=== PATIENT | male | born 1955 | race Caucasian/White ===

== ENCOUNTER 2017-05-31 06:54 | Inpatient (IN) | payer OTHER ==
[2017-05-31] VITALS (16 sets, daily range): BP systolic 114–158; BP diastolic 67–97; PULSE 62–84; RESP 16–18; TEMP 98.6–98.9; O2SAT 96–98
[~2017-05-31] VITALS: Ht 182.9 cm; Wt 106.5 kg
[~2017-05-31 06:54] MED LIST: DOXY100T PO; SULF-154 PO; Z.0.NO CURRENT MEDS
[2017-05-31] MEDS ORDERED: METF1000 PO (07:23)
[2017-05-31] MEDS ORDERED: INSU100V3 SQ (07:23)
[2017-05-31] MEDS ORDERED: FAMO1TAB37 PO (07:23)
[2017-05-31] MEDS ORDERED: MORPHINE SULFATE 4 MG/ML INJ IV PUSH ONE (07:30)
[2017-05-31] MEDS ORDERED: SODIUM CHLORIDE 0.9% FLUSH 10 ML FLUSH IVF PRN (07:30)
[2017-05-31] MEDS ORDERED: NITROGLYCERIN 2% OINT 1 GM PACKET TOP ONE (07:30)
[2017-05-31] MEDS ORDERED: ASPIRIN 81 MG CHEW TAB PO ONE (07:30)
[2017-05-31 07:40] LABS: AUTOMATED NEUTROPHIL # 8.4 TH/MM3 (1.8-7.7); BASOPHIL % 0.3 % (0.0-2.0); EOSINOPHIL # 0.3 TH/MM3 (0-0.4); HEMO FLAGS DIFF FINAL; LYMPH % 19.9 % (9.0-44.0); LYMPHOCYTE # 2.3 TH/MM3 (1.0-4.8); MEAN CELL VOLUME 83.6 FL (80.0-100.0); MEAN CORPUSCULAR HEMOGLOBIN 28.1 PG (27.0-34.0); MEAN CORPUSCULAR HGB CONC 33.6 % (32.0-36.0); MONO % 4.4 % (0.0-8.0); NEUT % 72.4 % (16.0-70.0); PLATELET COUNT 219 TH/MM3 (150-450); RED BLOOD COUNT 5.74 MIL/MM3 (4.50-5.90); WHITE BLOOD COUNT 11.6 TH/MM3 (4.0-11.0)
--- NOTE | 2017-05-31 07:40 | PD ---
HPI Chief Complaint: Chest Pain Time Seen by Provider: 07:19 Travel History International Travel<30 days: No Contact w/Intl Traveler<30days: No Traveled to known affect area: No History of Present Illness HPI c/o intermittent chest discomfort "burning" in sensation, over last 2 weeks, intermittent, worse with exertion, episodes last 30min max, substernal, 9/10 at onset currently 6/10 pmhx: borderline htn, dm, smoked 30yrs ago, pcp dr eulalia [place] no [facility] Past Medical History Diabetes: Yes Patient Takes Glucophage: Yes Diminished Hearing: No GERD: Yes Hiatal Hernia: Yes ?: Not Social History Alcohol Use: No Tobacco Use: No Substance Use: No Allergies-Medications (Allergen,Severity, Reaction): Coded Allergies: No Known Allergies (Verified , 05/30/09) Reported Meds & Prescriptions Reported Meds & Active Scripts Active Reported Pepcid (Famotidine) 20 Mg Tab 10 Mg PO BID Humulin N Inj (Insulin Human NPH) 1,000 Unit/10 Ml Vial 10 Units SQ Metformin (Metformin HCl) 1,000 Mg Tab 1,000 Mg PO BIDPC With meals Physical Exam Narrative GENERAL: SKIN: Warm and dry. HEAD: Atraumatic. Normocephalic. EYES: Pupils equal and round. No scleral icterus. No injection or drainage. ENT: No nasal bleeding or discharge. Mucous membranes pink and moist. NECK: Trachea midline. No JVD. CARDIOVASCULAR: Regular rate and rhythm. RESPIRATORY: No accessory muscle use. Clear to auscultation. Breath sounds equal bilaterally. GASTROINTESTINAL: Abdomen soft, non-tender, nondistended. Hepatic and splenic margins not palpable. MUSCULOSKELETAL: Extremities without clubbing, cyanosis, or edema. No obvious deformities. NEUROLOGICAL: Awake and alert. No obvious cranial nerve deficits. Motor grossly within normal limits. Five out of 5 muscle strength in the arms and legs. Normal speech. PSYCHIATRIC: Appropriate mood and affect; insight and judgment normal. Data Data Last Documented VS Vital Signs Date Time Temp Pulse Resp B/P (MAP) Pulse Ox O2 Delivery O2 Flow Rate FiO2 05/31/17 08:13 67 18 147/72 (97) 98 Room Air 05/31/17 06:56 98.9 Orders Orders Electrocardiogram (05/31/17 07:19) Ckmb (Isoenzyme) Profile (05/31/17 07:19) Complete Blood Count With Diff (05/31/17 07:19) Comprehensive Metabolic Panel (05/31/17 07:19) Prothrombin Time / Inr (Pt) (05/31/17 07:19) Act Partial Throm Time (Ptt) (05/31/17 07:19) Troponin I (05/31/17 07:19) Chest, Single Ap (05/31/17 07:19) Ecg Monitoring (05/31/17 07:19) Bilateral Bp Monitoring (05/31/17 07:19) Iv Access Insert/Monitor (05/31/17 07:19) Oximetry (05/31/17 07:19) Oxygen Administration (05/31/17 07:19) Aspirin Chew (Aspirin Chew) (05/31/17 07:30) Morphine Inj (Morphine Inj) (05/31/17 07:30) Nitroglycerin 2% Oint (Nitroglycerin 2% (05/31/17 07:30) Sodium Chloride 0.9% Flush (Ns Flush) (05/31/17 07:30) Al-Mag Hy-Si 40-40-4 Mg/Ml Liq (Mag-Al P (05/31/17 07:45) Lidocaine 2% Viscous (Xylocaine 2% Visco (05/31/17 07:45) CKMB (05/31/17 07:30) CKMB% (05/31/17 07:30) Enoxaparin Inj (Lovenox Inj) (05/31/17 08:45) Labs Laboratory Tests Test 05/31/17 07:30 White Blood Count 11.6 TH/MM3 Red Blood Count 5.74 MIL/MM3 Hemoglobin 16.1 GM/DL Hematocrit 48.0 % Mean Corpuscular Volume 83.6 FL Mean Corpuscular Hemoglobin 28.1 PG Mean Corpuscular Hemoglobin Concent 33.6 % Red Cell Distribution Width 13.0 % Platelet Count 219 TH/MM3 Mean Platelet Volume 8.1 FL Neutrophils (%) (Auto) 72.4 % Lymphocytes (%) (Auto) 19.9 % Monocytes (%) (Auto) 4.4 % Eosinophils (%) (Auto) 3.0 % Basophils (%) (Auto) 0.3 % Neutrophils # (Auto) 8.4 TH/MM3 Lymphocytes # (Auto) 2.3 TH/MM3 Monocytes # (Auto) 0.5 TH/MM3 Eosinophils # (Auto) 0.3 TH/MM3 Basophils # (Auto) 0.0 TH/MM3 CBC Comment DIFF FINAL Differential Comment Prothrombin Time 10.5 SEC Prothromb Time International Ratio 1.0 RATIO Activated Partial Thromboplast Time 25.3 SEC Blood Urea Nitrogen 13 MG/DL Creatinine 1.05 MG/DL Random Glucose 235 MG/DL Total Protein 6.9 GM/DL Albumin 3.4 GM/DL Calcium Level 8.6 MG/DL Alkaline Phosphatase 82 U/L Aspartate Amino Transf (AST/SGOT) 29 U/L Alanine Aminotransferase (ALT/SGPT) 24 U/L Total Bilirubin 0.4 MG/DL Sodium Level 138 MEQ/L Potassium Level 3.9 MEQ/L Chloride Level 102 MEQ/L Carbon Dioxide Level 26.5 MEQ/L Anion Gap 10 MEQ/L Estimat Glomerular Filtration Rate 71 ML/MIN Total Creatine Kinase 134 U/L Creatine Kinase MB 9.9 NG/ML Troponin I 4.55 NG/ML MDM Medical Decision Making Medical Screen Exam Complete: Yes Emergency Medical Condition: Yes Medical Record Reviewed: Yes Interpretation(s) nsr, 74, lad, inverted t waves inferiorly Differential Diagnosis mi v nonstemi v pna v hiatal hernia/gerd Narrative Course PATIENT SEEN AND PAIN CONTROL WITH ASA/NTG/MORPHINE , UPON FINDING ELEV TROP, GIVEN [facility] SC AND OWNER CONSULTING ENGINEER CONSULTED...DR NEGRETE STATED DR DORANTES TO TAKE TO CATH Critical Care Narrative CRITICAL CARE NOTE: With evaluation of the patient, labs, EKG, receipt of radiologic studies, administration of medications, reevaluation the patient and discussion of the patient with the admitting physicians, the total critical care time was [45] minutes. Time to perform other separately billable procedures was not included in the critical care time. Physician Communication Physician Communication D/W DR NEGRETE RECC [facility] AND ADMIT TO [facility], AND WILL CALL BACK WITH PLAN OF ACTION....AT 0857 CALL BACK STATED KEEP NPO AND THAT DR DORANTES WILL TAKE TO CROP ADJUSTER AND IS TO BE CONSULTED Diagnosis Primary Impression: Non-STEMI (non-ST elevated myocardial infarction) Admitting Information Admitting Physician Requests: Admit Gavino Matos MD May 31, 2017 07:40
[2017-05-31] MEDS ORDERED: LIDOCAINE VISCOUS 2% SOLN 15 ML UDC PO ONE (07:45)
[2017-05-31] MEDS ORDERED: ALUMINUM/MAGNESIUM/SIMETH 30 ML CUP PO ONE (07:45)
[2017-05-31 07:47] LABS: APTT (PATIENT) 25.3 SEC (24.3-30.1); PROTHROMBIN TIME - PATIENT 10.5 SEC (9.8-11.6)
[2017-05-31 07:55] LABS: ALT (GPT) 24 U/L (12-78); ANION GAP 10 MEQ/L (5-15); AST (GOT) 29 U/L (15-37); BICARBONATE 26.5 MEQ/L (21.0-32.0); BLOOD UREA NITROGEN 13 MG/DL (7-18); CHLORIDE 102 MEQ/L (98-107); GLOMERULAR FILTRATION RATE 71 ML/MIN (>89); POTASSIUM 3.9 MEQ/L (3.5-5.1); SODIUM (NA) 138 MEQ/L (136-145)
[2017-05-31 07:58] LABS: ALKALINE PHOSPHATASE 82 U/L (45-117); CREATINE KINASE 134 U/L (39-308); TOTAL BILIRUBIN ADULT 0.4 MG/DL (0.2-1.0)
[2017-05-31 08:15] LABS: CKMB 9.9 NG/ML (0.5-3.6)
[2017-05-31] MEDS ORDERED: ENOXAPARIN SODIUM 80 MG/0.8 ML SYRINGE SQ ONE (08:45)
--- NOTE | 2017-05-31 08:54 | EKG ---
Date Performed: 05/31/2017 Time Performed: 07:09:10 PTAGE: 62 years EKG: Sinus rhythm LEFT ANTERIOR FASCICULAR BLOCK MODERATE VOLTAGE CRITERIA FOR LVH, CONSIDER NORMAL VARIANT POSSIBLE A NTERIOR MYOCARDIAL INFARCTION MODERATE T-WAVE ABNORMALITY, CONSIDER INFERIOR ISCHEMIA ABNORMAL ECG NO PREVIOUS TRACING DOCTOR: Charlie Bowen Interpretating Date/Time 05/31/2017 08:53:06
[2017-05-31] MEDS ORDERED: SODIUM CHLOR 0.9% 1000 ML INJ 1,000 ML IV SCH ×2 (09:05→09:10)
[2017-05-31] MEDS ORDERED: ASPIRIN 325 MG TAB PO SCH (09:15)
[2017-05-31] MEDS ORDERED: ONDANSETRON HCL 4 MG/2 ML VIAL IVP PRN (09:15)
[2017-05-31] MEDS ORDERED: diphenhydrAMINE HCL 50 MG/ML VIAL IV SCH (09:15)
[2017-05-31] MEDS ORDERED: ACETAMINOPHEN 325 MG TAB PO PRN ×2 (09:15→14:15)
[2017-05-31] MEDS ORDERED: SODIUM CHLORIDE 0.9% FLUSH 10 ML FLUSH IV FLUSH PRN (09:15)
--- NOTE | 2017-05-31 09:21 | RADRPT ---
EXAM DATE/TIME: 05/31/2017 09:13 [place] COMPARISON: No previous studies available for comparison. INDICATIONS : Chest pain for 1 week. MEDICAL HISTORY : Former smoker. SURGICAL HISTORY : None. ENCOUNTER: Initial ACUITY: 1 week PAIN SCORE: 1/10 LOCATION: Bilateral chest FINDINGS: A single view of the chest demonstrates the lungs to be symmetrically aerated without evidence of mas s, infiltrate or effusion. The cardiomediastinal contours are unremarkable. Osseous structures are intact. CONCLUSION: Normal examination. Alberto Solano MD on May 31, 2017 at 9:19 Board Certified Radiologist. This report was verified electronically.
[2017-05-31] MEDS ORDERED: DEXTROSE 50% IN WATER 50 ML VIAL(D50) IV PRN (09:30)
[2017-05-31] MEDS ORDERED: GLUCAGON 1 MG/ML VIAL OTHER PRN (09:30)
--- NOTE | 2017-05-31 09:52 | HHI.HP ---
HPI Service [facility] Hospitalists Primary Care Physician Dr. Iris Pavon Admission Diagnosis ACUTE NONSTEMI Chief Complaint: Chest pain Travel History International Travel<30 Days: No Contact w/Intl Traveler <30 Da: No Traveled to Known Affected Are: No History of Present Illness This is a 62-year-old male patient with past medical history which includes diabetes mellitus type 2, GERD and hypertension not on hypertensive medication. Patient reports for the past one to 2 weeks he has been having chest pain 8-9 out of 10 at its maximum severity located across his lower chest described as heartburn sensation exacerbated by exertion such as working out at the gym relieved by laying down or rest episodes last approximately 30 minutes associated with radiation to the neck and jaw area. There is no associated shortness of breath, diaphoresis, nausea or vomiting. Patient reports last night/this morning around midnight he began to have a burning sensation across his mid chest area which was not relieved by rest patient rates this at 5 out of 10 at its maximum severity. At this point patient reports he is chest pain- free. Patient also denies fevers or chills at this time. Patient reports he has never had these symptoms before has no cardiac history quit smoking approximately 30 years ago after smoking one pack a day for 6-7 years. Patient also denies family medical history of heart disease. initial troponin 4.55, initial EKG reveals normal sinus rhythm with a left anterior fascicular block. There are inverted T-waves in the inferior leads in V6. Review of Systems Constitutional: DENIES: Fatigue, Fever, Chills Eyes: DENIES: Diplopia, Eye pain, Vision loss Respiratory: DENIES: Wheezing, Sputum production, Shortness of breath Cardiovascular: COMPLAINS OF: Chest pain, DENIES: Palpitations, Dyspnea on Exertion Gastrointestinal: DENIES: Abdominal pain, Black stools, Constipation, Diarrhea Musculoskeletal: DENIES: Joint pain, Muscle aches, Stiffness, Joint Swelling Neurologic: DENIES: Abnormal gait, Localized weakness, Speech Problems, Tremor , Poor Balance Psychiatric: DENIES: Anxiety, Confusion, Depression, Agitation Past Family Social History Past Medical History Diabetes mellitus type 2, GERD and hypertension not on hypertensive medication Past Surgical History Denies prior surgical intervention Reported Medications Pepcid (Famotidine) 20 Mg Tab 10 Mg PO BID Humulin N Inj (Insulin Human NPH) 1,000 Unit/10 Ml Vial 10 Units SQ - noncompliant Metformin (Metformin HCl) 1,000 Mg Tab 1,000 Mg PO BIDPC With meals Allergies: Coded Allergies: No Known Allergies (Verified , 05/30/09) Active Ordered Medications Current Medications Medications (Trade) Dose Ordered Sig/Ubaldo Route Start Time Stop Time Status Last Admin (NS Flush) 2 ml UNSCH PRN IVF 05/31/17 07:30 Sodium Chloride 1,000 ml @ 100 mls/hr Q10H IV 05/31/17 09:05 UNV (NS Flush) 2 ml UNSCH PRN IV FLUSH 05/31/17 09:15 UNV (NS Flush) 2 ml BID IV FLUSH 05/31/17 21:00 UNV (Tylenol) 650 mg Q4H PRN PO 05/31/17 09:15 UNV (Zofran Inj) 4 mg Q6H PRN IVP 05/31/17 09:15 UNV (Nitroglycerin 2% Oint) 0.5 inch Q6HR TOPICAL 05/31/17 12:00 UNV Sodium Chloride 1,000 ml @ 100 mls/hr Q10H IV 05/31/17 09:10 06/05/17 09:09 UNV (Aspirin) 325 mg BUFFET SERVER PO 05/31/17 09:15 06/04/17 09:14 UNV (fentaNYL INJ) 50 mcg BUFFET SERVER IV 05/31/17 09:15 06/04/17 09:14 UNV (Benadryl Inj) 25 mg BUFFET SERVER IV 05/31/17 09:15 06/04/17 09:14 UNV Family History Denies family medical history including cardiac disease, CVA or diabetes Father at 87 of old age Mother is 97 years old alive and healthy Social History Quit smoking approximately 30 years ago prior to that had a 6-7 year period where he smoked one pack per day Denies EtOH use Denies illicit drug use Physical Exam Vital Signs Vital Signs Date Time Temp Pulse Resp B/P (MAP) Pulse Ox O2 Delivery O2 Flow Rate FiO2 05/31/17 08:13 67 18 147/72 (97) 98 Room Air 05/31/17 08:01 73 145/67 (93) 141/70 (93) 05/31/17 07:23 18 97 Room Air 05/31/17 07:23 97 Room Air 05/31/17 07:13 74 18 96 Room Air 05/31/17 06:56 98.9 72 16 158/97 (117) 97 Room Air Physical Exam GENERAL: This is a well-nourished, well-developed patient, in no apparent distress. SKIN: No rashes, ecchymoses or lesions. Cool and dry. HEAD: Atraumatic. Normocephalic. No temporal or scalp tenderness. EYES:Extraocular motions intact. No scleral icterus. No injection or drainage. CARDIOVASCULAR: Regular rate and rhythm without murmurs, gallops, or rubs. RESPIRATORY: Clear to auscultation. Breath sounds equal bilaterally. No wheezes , rales, or rhonchi. GASTROINTESTINAL: Abdomen soft, non-tender, nondistended. No guarding. MUSCULOSKELETAL: Extremities without clubbing, cyanosis, or edema. No joint tenderness, effusion, or edema noted. No calf tenderness. Negative Homans sign bilaterally. NEUROLOGICAL: Awake and alert. No focal deficits appreciated. Motor and sensory grossly within normal limits. Five out of 5 muscle strength in all muscle groups. Normal speech. Laboratory Laboratory Tests Test 05/31/17 07:30 White Blood Count 11.6 Red Blood Count 5.74 Hemoglobin 16.1 Hematocrit 48.0 Mean Corpuscular Volume 83.6 Mean Corpuscular Hemoglobin 28.1 Mean Corpuscular Hemoglobin Concent 33.6 Red Cell Distribution Width 13.0 Platelet Count 219 Mean Platelet Volume 8.1 Neutrophils (%) (Auto) 72.4 Lymphocytes (%) (Auto) 19.9 Monocytes (%) (Auto) 4.4 Eosinophils (%) (Auto) 3.0 Basophils (%) (Auto) 0.3 Neutrophils # (Auto) 8.4 Lymphocytes # (Auto) 2.3 Monocytes # (Auto) 0.5 Eosinophils # (Auto) 0.3 Basophils # (Auto) 0.0 CBC Comment DIFF FINAL Differential Comment Prothrombin Time 10.5 Prothromb Time International Ratio 1.0 Activated Partial Thromboplast Time 25.3 Blood Urea Nitrogen 13 Creatinine 1.05 Random Glucose 235 Total Protein 6.9 Albumin 3.4 Calcium Level 8.6 Alkaline Phosphatase 82 Aspartate Amino Transf (AST/SGOT) 29 Alanine Aminotransferase (ALT/SGPT) 24 Total Bilirubin 0.4 Sodium Level 138 Potassium Level 3.9 Chloride Level 102 Carbon Dioxide Level 26.5 Anion Gap 10 Estimat Glomerular Filtration Rate 71 Total Creatine Kinase 134 Creatine Kinase MB 9.9 Troponin I 4.55 Result Diagram: 05/31/1772905/31/17729 Imaging Last Impressions Chest X-Ray 05/31/17718 Signed Impressions: Service Date/Time: Wednesday, May 31, 2017 09:13 - CONCLUSION: Normal examination. MD Tony Garcia VTE Risk Assessment Tony VTE Risk Assessment: Mod/High Risk (score >= 2) Caprini Risk Assessment Model Point Value = 1 Point Value = 2 Point Value = 3 Point Value = 5 Age 41-60 Minor surgery BMI > 25 kg/m2 Swollen legs Varicose veins or History of unexplained or recurrent spontaneous Oral contraceptives or hormone replacement Sepsis (< 1 month) Serious lung disease, including pneumonia (< 1 month) Abnormal pulmonary function Acute myocardial infarction Congestive heart failure (< 1 month) History of inflammatory bowel disease Medical patient at bed rest Age 61-74 Arthroscopic surgery Major open surgery (> 45 min) Laparoscopic surgery (> 45 min) Malignancy Confined to bed (> 72 hours) Immobilizing plaster cast Central venous access Age >= 75 History of VTE Family history of VTE Factor V Leiden Prothrombin [id number] Lupus anticoagulant Anticardiolipin antibodies Elevated serum homocysteine Heparin-induced thrombocytopenia Other congenital or acquired thrombophilia Stroke (< 1 month) Elective arthroplasty Hip, pelvis, or leg fracture Acute spinal cord injury (< 1 month) Prophylaxis Regimen Total Risk Factor Score Risk Level Prophylaxis Regimen 0-1 Low Early ambulation 2 Moderate Order ONE of the following: *Sequential Compression Device (SCD) *Heparin 5000 units SQ BID 3-4 Higher Order ONE of the following medications: *Heparin 5000 units SQ TID *Enoxaparin/Lovenox 40 mg SQ daily (WT < 150 kg, CrCl > 30 mL/min) *Enoxaparin/Lovenox 30 mg SQ daily (WT < 150 kg, CrCl > 10-29 mL/min) *Enoxaparin/Lovenox 30 mg SQ BID (WT < 150 kg, CrCl > 30 mL/min) AND/OR *Sequential Compression Device (SCD) 5 or more Highest Order ONE of the following medications: *Heparin 5000 units SQ TID (Preferred with Epidurals) *Enoxaparin/Lovenox 40 mg SQ daily (WT < 150 kg, CrCl > 30 mL/min) *Enoxaparin/Lovenox 30 mg SQ daily (WT < 150 kg, CrCl > 10-29 mL/min) *Enoxaparin/Lovenox 30 mg SQ BID (WT < 150 kg, CrCl > 30 mL/min) AND *Sequential Compression Device (SCD) Assessment and Plan Problem List: (1) Non-STEMI (non-ST elevated myocardial infarction) ICD Codes: I21.4 - Non-ST elevation (NSTEMI) myocardial infarction Status: Acute Plan: Initial troponin 4.55, initial EKG reviewed reveals normal sinus rhythm with a left anterior fascicular block. There are inverted T-waves in the inferior leads in V6. ER physician spoke with as400 programmer analyst Dr. Joshua plans to take patient for cardiac catheter Patient nothing by mouth Patient has received aspirin 162 mg by mouth, Lovenox 80 mg subcutaneous, nitroglycerin 2% paste 0.5 inch applied, morphine 2 mg Lipid panel in a.m. (2) Diabetes mellitus ICD Codes: E11.9 - Type 2 diabetes mellitus without complications Plan: Hold metformin Accuchecks ACHS with SSI Hemoglobin A1C in AM Diabetic education (3) GERD (gastroesophageal reflux disease) ICD Codes: K21.9 - Gastro-esophageal reflux disease without esophagitis Plan: Continue home medication (4) HTN (hypertension) ICD Codes: I10 - Essential (primary) hypertension Plan: not currently on medication at home monitor BP trend Assessment and Plan Patient examined. Assessment and plan formulated with Gracie Bourne PA-C. I agree with the above. Pt underwent LHC today (05/31/17) with Dr. Keily Joshua. Pt was found to have severe, distal RCA disease. Pt had PTCA of RCA. Pt placed on ASA, plavix, coreg, lipitor. Anticipate d/c to home 06/01/17 Physician Certification 2 Midnight Certification Type: Admission for Inpatient Services Order for Inpatient Services The services are ordered in accordance with Medicare regulations or non- Medicare payer requirements, as applicable. In the case of services not specified as inpatient-only, they are appropriately provided as inpatient services in accordance with the 2-midnight benchmark. Estimated LOS (days): 2 days is the estimated time the patient will need to remain in the hospital, assuming treatment plan goals are met and no additional complications. Post-Hospital Plan: Home Gracie Bourne May 31, 2017 09:52 Ras Alejandro DO May 31, 2017 23:19
[2017-05-31] MEDS: NITROGLYCERIN 2% OINT 1 GM PACKET TOPICAL SCH ×2 (10:19→17:19)
[2017-05-31] MEDS: INSULIN ASPART SUPPLEMENTAL SCALE SQ SCH ×3 (10:47→20:58)
--- NOTE | 2017-05-31 10:49 | MB ---
cc: BEL DORANTES MD DATE OF CONSULTATION: 05/31/2017 REASON FOR CONSULTATION: Non-ST elevation FL. HISTORY OF PRESENT ILLNESS Mr. Rodriguez is a 62-year-old man who does have a history of diabetes and borderline hypertension. He reports to me that he has been having intermittent episodes of random chest pain and throat discomfort. Last night he had a burning chest discomfort that woke him up in the middle of the night. He subsequently came to the emergency room. He is fairly active at work and has not really had any difficulty there. I do not some inconsistencies with some of the other documentation. The patient denies having these symptoms previously. PAST MEDICAL HISTORY: Significant for: Diabetes. GERD. The patient reports he was on blood pressure pills in the past but was taken off. REVIEW OF SYSTEMS: Except as mentioned in the HPI, all 12 systems are negative. SOCIAL HISTORY: The patient does have a remote smoking history. He currently works construction. ALLERGIES: NO KNOWN DRUG ALLERGIES. OUTPATIENT MEDICATIONS Metformin. FAMILY HISTORY Negative for CAD. PHYSICAL EXAMINATION: On physical examination, vital signs 98.9, 72, 16, 158/97. GENERAL: He is a well-appearing man who is in no apparent distress. NECK: Free from JVD. LUNGS: Bilaterally clear to auscultation. CARDIOVASCULAR: He has a normal S1-S2. I did not appreciate any murmurs, rubs or gallops. ABDOMEN: Soft. EXTREMITIES: Free from edema. LABORATORY VALUES: Significant for a white count of 11.6, creatinine 1.05, CKMB of 9.9, total CK 134. Troponin 4.55. EKG shows normal sinus rhythm with a left anterior fascicular block. There are inverted T-waves in the inferior leads in V6. IMPRESSION: Non ST elevation FL - the patient does have several risk factors, some atypical chest pain and elevated troponin. His EKG is also concerning for a recent inferolateral event which would fit with the ingestion type of discomfort he is describing. At this point we did discuss the risks, benefits and alternatives to further evaluation with cardiac catheterization. He is agreeable despite a 10% risk for , FL, CVA, bleeding and other. I have activated the physical laboratory assistant team this weekend and we will get him up to the lab promptly. We will medically manage him in the interim. Hypertension - the patient's blood pressure is marginally elevated here. We will start him on beta-viet given his FL. Diabetes - the metformin will obviously be held. This will be managed by the primary team. Lipids - I will obtain a set of labs. Marty Sosa/SUJEY /10:22 AM /10:36 AM
[2017-05-31 11:07] LABS: CREATINE KINASE 124 U/L (39-308); HDL CHOLESTEROL 45.6 MG/DL (40.0-60.0); LDL CHOLESTEROL 69 MG/DL (0-99)
[2017-05-31 11:26] LABS: CKMB 7.9 NG/ML (0.5-3.6)
[2017-05-31] MEDS ORDERED: IOHEXOL 350 MG/ML 100 ML BTL (for Cath Lab) OTHER ONE (11:45)
[2017-05-31] MEDS ORDERED: NITROGLYCERIN-D5W 50 MG/250 ML 250 ML ONE (12:20)
[2017-05-31] MEDS ORDERED: MIDAZOLAM HCL 2 MG/2 ML VIAL ONE (12:26)
[2017-05-31] MEDS ORDERED: BIVALIRUDIN 250 MG VIAL ONE ×2 (12:44→13:20)
[2017-05-31] MEDS ORDERED: TICAGRELOR 90 MG TAB PO ONE (13:40)
--- NOTE | 2017-05-31 13:52 | CATHPROC ---
[employer] HIS Report Study Information Study Number Admission Scheduled Start Study Start [id number] May 31 2017 9:04AM 05/31/2017 May 31 2017 11:34AM [facility] Service Cardiac Catheterization Admit Source Facility Department Emergency department [facility] Physician and Clinical Staff Initial Chanda Leh Well Logging Operator Mud Analysissanjuanita Baum RN, Jamie Well Logging Operator Mud AnalysisWillis DudleyRN Recorder Etta Peterson,RT(R) (BS) Scrub Augusta Guzman,RT(R) Procedures Performed Procedure Location (Site) Vessel Name Angiogram LV LV Ventricle Coronary Angiograms LCA Left Coronary Coronary Angiograms RCA Right Coronary L Heart Cath PTCA RCA Dist Right Coronary PTCA ADD ON'S Wire insertion Fem Art (right) Femoral Art Equipment Time Strategic Business Development Description Size Mfg Part Number Used/Scraped WIRE, BALANCE MIDDLEWEIGHT [id number] 12:43 [employer] 190CM Used 190CM ([facility]) *[id number] TRANSDUCER, TRUWAVE [id number] 12:08 BENAVIDEZ TALAVERA * Used W/STOCKCOCK *[id number] 13:08 [employer] BALLOON, 2.0 12MM EMERGE MR 2.0 12MM Used *[id number] 13:22 [employer] BALLOON, 3.0 12MM EMERGE MR 3.0 12MM Used *[id number] 12:56 [employer] WIRE, CHOICE PT 182CM 182CM Used *[id number] *[id number] 538-476 *[id number] 538-420 *[id number] [id number] *[id number] 12:08 MEDLINE INDUSTRIES PACK, CCL CUSTOM * Used *[id number] 12:08 MEDLINE PACER PEN, SKIN DUAL W/ RULER * Used *[id number] BALLOON, 1.25 X 10MM [id number] 13:03 MEDTRONIC 10MM Used SPRINTER LEGEND RX *[id number] STENT, 3.0 12 RESOLUTE [id number] 13:13 MEDTRONIC 3.0 12 Used INTEGRITY RX *[id number] 12:43 [facility] MEDICAL 30 ELANA INDEFLATOR Used *[id number] PSI-4F- 12:08 [facility] MEDICAL SHEATH, FR4.5 PRELUDE 11CM FR 4.5 Used [id number] PSI-6F- 12:45 [facility] MEDICAL SHEATH, FR6.5 PRELUDE 11CM FR 6.5 038ACT Used *[id number] 12:08 [facility] MEDICAL WIRE, 3MMJ .035 180CM 180CM Used *[id number] 12:08 NAMIC CONTRAST CONTROLLER, SPIKE * Used *[id number] 12:08 NAMIC MANIFOLD, 4 PORT * Used *[id number] 12:08 [employer] OMNIPAQUE, 350 MG, 150ML 150ML [id number] Used [id number] 12:08 [facility] BLANKET,WARM AIR CCL * Used *[id number] Equipment Model, Serial, Lot Number and Expiration Data Description Model Number Serial Number Lot Number Expiration Date BALLOON, 2.0 12MM EMERGE MR [id number] 01-04-2020 BALLOON, 3.0 12MM EMERGE MR [id number] 12-03-2019 STENT, 3.0 12 RESOLUTE [id number] 02-04-2019 INTEGRITY RX WIRE, CHOICE PT 182CM [id number] 04-10-2019 History: Current Medications Medication Dosage/Unit Route Frequency Last Date/Time Taken LOVENOX ASA NTG Patch History: Allergies Allergy Reaction No Known Allergies History: Risk Factors Family History of Hypertension Dyslipidemia Previous NE Previous Heart Failure Premature CAD Yes No No No No Prior Valve Prior PCI Prior CABG Surgery No No No Cerebrovascular Peripheral Artery Chronic Lung On Dialysis Diabetes Diabetes Therapy Disease Disease Disease No No No No Yes Oral History: Symptoms/Diagnosis Selection Items Chest pain History: Stress Tests Stress or Imaging Studies Performed No History: Other Current Smoker Method Quit Packs a Day Years Used Pack Years No Cigarettes 30 Years Ago 1 7 7 Labs Hgb (g/dl) Hct (%) WBC (l/cumm) Platelets (thousands) 11.60-17.00 35.00-51.00 4.00-11.00 150.00-450.00 16.1 48 11.6 219 Glucose (mg/dl) BUN (mg/dl) Creatinine (mg/dl) BUN:Creatinine (1:x) 74.00-106.00 7.00-18.00 0.50-1.30 10.00-20.00 235 13 1.0 13 Na (meq/l) K (meq/l) 136.00-145.00 3.50-5.10 138 3.9 INR (PTT:PT) 0.90-1.10 1 Troponin I (ng/ml) CPK (u/l) CPK-MB (ng/ML) 0.02-0.05 26.00-308.00 0.50-3.60 4.55 134 9.9 Medication Medication Total Dose (Bolus/Oral) Medication Total Dosage/Unit 1% XYLOCAINE 20 mL ANGIOMAX BOLUS 16.5 mL BRILINTA 180 mg VERSED 1 mg Medications (Bolus/Oral) Medication Time Given Dosage/Unit Administered By Reason 1% XYLOCAINE 05/31/2017 12:26:41 PM 20 mL Bel Joshua 20 mL 1% XYLOCAINE given in lab by Bel Joshua in Right Groin via Subcutaneous. VERSED 05/31/2017 12:27:02 PM 1 mg Willis Jaimes 1 mg VERSED given in lab by Willis Jaimes RN in Left Antecubital via Peripheral IV. ANGIOMAX BOLUS 05/31/2017 12:45:50 PM 16.5 mL Jamie Baum RN 16.5 mL ANGIOMAX BOLUS given in lab by Jamie Baum RN in Left Antecubital via Peripheral IV. BRILINTA 05/31/2017 1:45:20 PM 180 mg Willis Jaimes 180 mg BRILINTA given in lab by Willis Jaimes RN via Oral. Medication (Drip) Medication Time Given Dosage/Unit Concentration/Unit Diluent (ml) Solution ANGIOMAX DRIP 05/31/2017 12:48:14 PM 1.75 mg/kg/hr 250 mg 50 NaCl .9 1.75 mg/kg/hr ANGIOMAX DRIP given in lab by Jamie Baum RN in Left Antecubital via Peripheral IV. Pu mp/Drip Flow = 38.5 ml/hr using NaCl .9 with a concentration of 250 mg in 50 ml. IV Solutions 05/31/2017 11:59:56 AM 0 mL (IV) 500 NaCl .9 IV Solutions given in lab by Willis Jaimes RN in Left Antecubital via Peripheral IV. Pump/Drip Flow = 100 ml/hr using NaCl .9. Initial Case Assessment Cardiovascular HR Rhythm NIBP Chest Pain 76 reg 122/80 0 Edema Present Skin color Skin None Normal Warm Dry Circulatory - Right Pulses Dorsalis Pedis Femoral 3 1 Scale (0,1,2,3,4,d) Circulatory - Left Pulses Dorsalis Pedis Femoral 2 3 Scale (0,1,2,3,4,d) Circulatory - Lower Extremities Color Lower Right Color Lower Left Normal Normal Neurological State Oriented to time-place- Alert Moves all extremities person Respiration - General Respiration Rate SpO2 (%) (B/min) 18 95 Chronological Log Time Study Chronological Log 11:45:30 Patient arrived via Bed. 11:45:36 Patient Name, D.O.B, / Armband Verified By R.N. 11:59:41 Consent signed by the physician and the patient and verified by the [facility] staff. 11:59:42 Pre-op and post- op instructions given; patient acknowledges understanding of instructions. 11:59:42 Verbal Stimulation=2 Physical Stimulation=2 Airway=2 Respiration=2 TOTAL=8. (0=absent, 1=li mited, 2=present) 11:59:44 Presedation assessment performed by [facility] RN. 11:59:48 Patient has been NPO for More than 6Hrs. 11:59:52 Skin Breakdown none per pt 11:59:53 Patient Warmer Placed on the Table. 11:59:54 Elisa Prominences Protected 11:59:55 A # 20 IV was noted in the Antecubital (left). Grade = 0 IV Solutions given in lab by Willis Jaimes, RN in Left Antecubital via Peripheral IV. Pump/Drip Flow = 100 ml/hr using 11:59:56 NaCl .9. 11:59:57 History and physical on the chart or being dictated. Assessment: Initial Case, HR=76 BPM, Rhythm=reg, OXTA=344/80 mmhg, Chest Pain=0, Edema=None, [place]=Normal, Skin = Warm, Dry Right Pulses: Nick Ped=3, Femoral=1 Left Pulses: Nick Ped=2, Femoral=3 12:00:00 Lower Right Extremities: Color=Normal Lower Left Extremities: Color=Normal Neurological: State=Alert, Ox3, DIAS Respiration: Resp=18 B/min, SpO2=95 % Vitals capture started with the following parameters, Patient=Adult, Interval=5 min, Initial Pr fsdcbh=803 mmHg, 12:00:18 Deflation Rate=5 mmHg, Cuff placed on Right Arm 12:00:55 HR=65 bpm, TSWI=688/80 mmhg, SpO2=97.0 %, Resp=0 B/min, Pain=0, Klever=10, Case=2 12:05:58 HR=67 bpm, SRXV=412/77 mmhg, SpO2=93.0 %, Resp=20 B/min 12:11:06 Bilateral groins prepped with 2% chlorhexidine, and with a 3 min. waiting time. 12:11:40 HR=61 bpm, UJAR=947/80 mmhg, SpO2=97.0 %, Resp=17 B/min, Pain=0, Klever=10, Case=2 12:15:19 Reference ECG taken 12:15:58 HR=67 bpm, GOTQ=949/82 mmhg, SpO2=96.0 %, Resp=22 B/min, Pain=0, Klever=10, Case=2 12:18:11 Pressure channel 1 zeroed. 12:21:01 HR=71 bpm, HBDK=101/74 mmhg, SpO2=93.0 %, Resp=16 B/min, Pain=0, Klever=10, Case=2 Time Out. Correct patient, correct procedure,correct physician, power injector loaded with cont rast with surgical team 12:24:23 present. Time Out Concurred by MD, individual staff in procedure 12:24:43 Case Start 12:24:47 MD aware pt received lovenox this morning 12:26:02 HR=70 bpm, CKCQ=204/77 mmhg, SpO2=93.0 %, Resp=20 B/min, Pain=0, Klever=10, Case=2 12:26:41 20 mL 1% XYLOCAINE given in lab by Bel Joshua in Right Groin via Subcutaneous. 12:27:02 1 mg VERSED given in lab by Willis Jaimes, RN in Left Antecubital via Peripheral IV. 12:28:22 Access site was Right Femoral Artery. 12:28:28 A SHEATH, FR4.5 PRELUDE 11CM FR 4.5 was advanced into the Fem Art (right) using the Percuta neous technique. 12:28:35 An injection in the Fem Art (right) was made through the SHEATH, FR4.5 PRELUDE 11CM FR 4.5. Recorded Pressure: Ao, HR=71, Condition=Condition 1 12:29:09 (Aorta) Ao 121/69/86 A PIGTAIL ANG. INFINITI CATHETER FR 4 was advanced over a wire. OMNIPAQUE, 350 MG, 150ML 150ML was used 12:30:02 for injections. 12:31:03 HR=66 bpm, SVLY=964/64 mmhg, SpO2=97.0 %, Resp=11 B/min, Pain=0, Klever=10, Case=2 Recorded Pressure: LV, HR=65, Condition=Condition 1 12:31:30 (Left Ventricle) LV 104/4/10 12:31:50 The LV was injected at 10 cc/sec for a total of 30. OMNIPAQUE, 350 MG, 150ML 150ML used. Recorded Pressure: LV, Ao, HR=66, Condition=Condition 1 12:32:57 (Left Ventricle) LV 111/5/11, (Aorta) Ao 105/66/84 After removing the current catheter a JL 4.0 INFINITI CATHETER FR 4 was advanced over a WIRE, 3 MMJ .035 180CM 12:33:13 180CM. 12:35:12 The LCA was injected and visualized at various angles. OMNIPAQUE, 350 MG, 150ML 150ML used . 12:36:00 HR=69 bpm, LBMW=255/76 mmhg, SpO2=96.0 %, Resp=10 B/min, Pain=0, Klever=10, Case=2 After removing the current catheter a 3DRC INFINITI CATHETER FR 4 was advanced over a WIRE, 3MM J .035 180CM 12:37:31 180CM. 12:38:49 The RCA was injected and visualized at various angles. OMNIPAQUE, 350 MG, 150ML 150ML used . 12:41:02 HR=77 bpm, RLCE=636/77 mmhg, SpO2=97.0 %, Resp=19 B/min, Pain=0, Klever=10, Case=2 12:42:34 OMNIPAQUE, 350 MG, 150ML 150ML and 30 ELANA INDEFLATOR added. A SHEATH, FR6.5 PRELUDE 11CM FR 6.5 was exchanged in the Fem Art (right). This was necessary in order to 12:44:19 accomodate a larger catheter. A 3DRC GUIDE CATHETER FR 6 was advanced over a wire. OMNIPAQUE, 350 MG, 150ML 150ML was used fo r 12:45:42 injections. 12:45:50 16.5 mL ANGIOMAX BOLUS given in lab by Jamie Baum RN in Left Antecubital via Peripheral I V. 12:46:03 HR=74 bpm, MUVO=091/77 mmhg, SpO2=95.0 %, Resp=10 B/min, Pain=0, Klever=10, Case=2 1.75 mg/kg/hr ANGIOMAX DRIP given in lab by Jamie Baum RN in Left Antecubital via Peripheral IV. Pump/Drip Flow = 12:48:14 38.5 ml/hr using NaCl .9 with a concentration of 250 mg in 50 ml. 12:48:29 A WIRE, BALANCE MIDDLEWEIGHT 190CM (BEL) 190CM was inserted via Fem Art (right). 12:51:06 HR=74 bpm, OTFF=247/70 mmhg, SpO2=95.0 %, Resp=19 B/min, Pain=0, Klever=10, Case=2 12:52:14 Activated Clotting Time Drawn 12:53:55 Nitro paste removed. 12:56:03 HR=62 bpm, XNOL=251/73 mmhg, SpO2=96.0 %, Resp=10 B/min, Pain=0, Klever=10, Case=2 12:56:10 A WIRE, CHOICE PT 182CM 182CM was inserted via Fem Art (right). 12:57:35 ACT (Normal Range 90-180) = 289 13:01:02 HR=71 bpm, QUXL=795/73 mmhg, SpO2=93.0 %, Resp=17 B/min, Pain=0, Klever=10, Case=2 A BALLOON, 1.25 X 10MM SPRINTER LEGEND RX 10MM was inserted over WIRE, CHOICE PT 182CM 182CM vi a the 13:02:38 Fem Art (right). A BALLOON, 1.25 X 10MM SPRINTER LEGEND RX 10MM over a WIRE, CHOICE PT 182CM 182CM in the RCA Di st was 13:04:44 inflated using a 30 ELANA INDEFLATOR at 15 elana for 32 sec. 13:06:03 HR=74 bpm, DCQK=049/74 mmhg, SpO2=95.0 %, Resp=24 B/min, Pain=0, Klever=10, Case=2 A BALLOON, 1.25 X 10MM SPRINTER LEGEND RX 10MM over a WIRE, CHOICE PT 182CM 182CM in the RCA Di st was 13:06:39 inflated using a 30 ELANA INDEFLATOR at 12 elana for 30 sec. 13:07:36 Balloon Removed. A BALLOON, 2.0 12MM EMERGE MR 2.0 12MM was inserted over WIRE, CHOICE PT 182CM 182CM via the Fe m Art 13:08:36 (right). A BALLOON, 2.0 12MM EMERGE MR 2.0 12MM over a WIRE, CHOICE PT 182CM 182CM in the RCA Dist was i nflated 13:09:51 using a 30 LEANA INDEFLATOR at 12 elana for 38 sec. 13:11:06 HR=75 bpm, ZDFQ=352/71 mmhg, SpO2=96.0 %, Resp=23 B/min, Pain=0, Klever=10, Case=2 13:12:11 Balloon Removed. A STENT, 3.0 12 RESOLUTE INTEGRITY RX 3.0 12 was advanced through a 3DRC GUIDE CATHETER FR 6 ov er a WIRE, 13:14:04 CHOICE PT 182CM 182CM. 13:15:14 Stent not deployed. Stent removed and intact. 13:16:05 HR=63 bpm, STDQ=465/71 mmhg, SpO2=94.0 %, Resp=25 B/min, Pain=0, Klever=10, Case=2 13:17:02 Wire removed 13:17:03 Wire removed 13:17:27 A WIRE, BALANCE MIDDLEWEIGHT 190CM (BEL) 190CM was inserted via Fem Art (right). 13:19:38 A WIRE, CHOICE PT 182CM 182CM was inserted via Fem Art (right). 13:21:06 HR=72 bpm, TGMC=369/74 mmhg, SpO2=95.0 %, Resp=30 B/min, Pain=0, Klever=10, Case=2 A BALLOON, 3.0 12MM EMERGE MR 3.0 12MM was inserted over WIRE, CHOICE PT 182CM 182CM via the Fe m Art 13:22:38 (right). 13:26:05 HR=70 bpm, GDLA=064/73 mmhg, SpO2=95.0 %, Resp=24 B/min, Pain=0, Klever=10, Case=2 A BALLOON, 3.0 12MM EMERGE MR 3.0 12MM over a WIRE, CHOICE PT 182CM 182CM in the RCA Dist was i nflated 13:29:09 using a 30 ELANA INDEFLATOR at 10 elana for 60 sec. 13:31:06 HR=76 bpm, EMTQ=728/73 mmhg, SpO2=95.0 %, Resp=24 B/min, Pain=0, Klever=10, Case=2 A BALLOON, 3.0 12MM EMERGE MR 3.0 12MM over a WIRE, CHOICE PT 182CM 182CM in the RCA Dist was i nflated 13:31:12 using a 30 ELANA INDEFLATOR at 10 elana for 60 sec. A BALLOON, 3.0 12MM EMERGE MR 3.0 12MM over a WIRE, CHOICE PT 182CM 182CM in the RCA Dist was i nflated 13:33:09 using a 30 ELANA INDEFLATOR at 10 elana for 60 sec. 13:35:16 Balloon Removed. 13:36:05 HR=80 bpm, HOKJ=111/76 mmhg, SpO2=95.0 %, Resp=30 B/min, Pain=0, Klever=10, Case=2 A STENT, 3.0 12 RESOLUTE INTEGRITY RX 3.0 12 was advanced through a 3DRC GUIDE CATHETER FR 6 o eduardo a WIRE, 13:36:49 CHOICE PT 182CM 182CM. 13:37:49 Stent not deployed. Stent removed and intact. 13:39:51 Wire removed 13:39:54 Wire removed 13:39:56 Catheter was removed 13:40:00 Case End 13:41:06 HR=76 bpm, BGXX=389/77 mmhg, SpO2=95.0 %, Resp=32 B/min, Pain=0, Klever=10, Case=2 13:41:47 Catheter(s) removed without difficulty 13:41:57 No case complications noted. 13:41:58 Cine recording checked. 13:42:00 Bedside Report will be given. 13:42:03 Contrast Scanned 13:42:05 A Left Heart Cath was performed. 13:42:12 In the Fem Art (right) the SHEATH, FR6.5 PRELUDE 11CM FR 6.[address] by Augusta Jonas RT(R). 13:43:57 [facility]IC called. Spoke to Bertha. Advised a-line needed. 13:45:20 180 mg BRILINTA given in lab by Willis Jaimes RN via Oral. 13:46:05 HR=72 bpm, OLZR=535/84 mmhg, SpO2=97.0 %, Resp=21 B/min, Pain=0, Klever=10, Case=2 13:46:54 Sterile dressing applied to site 13:48:51 Vitals capture stopped. 13:53:29 Patient moved to trihealther End Study - Contrast Media Used In Study Contrast Total Opened (mL) Total Used (mL) Total Wasted (mL) Omnipaque 160 160 0 End Study - Maximum Contrast Load Max Contrast Load (mL) 550.0 End Study - Radiation Exposure Fluoro Time (minutes) 14.1 End Study - Patient Disposition Complications Transferred To Interventional Outcome No Telemetry Bed successful
[2017-05-31] MEDS ORDERED: METOCLOPRAMIDE HCL 10 MG/2 ML VIAL IV PRN (14:15)
[2017-05-31] MEDS ORDERED: oxyCODONE/ACETAMINOPHEN 5 MG/325 MG TAB PO PRN (14:15)
[2017-05-31] MEDS ORDERED: LIDOCAINE 2% JELLY 30 ML TUBE TOP PRN (14:15)
[2017-05-31] MEDS ORDERED: oxyCODONE/ACETAMINOPHEN 10 MG/325 MG TAB PO PRN (14:15)
[2017-05-31] MEDS ORDERED: ATROPINE SULFATE 1 MG/ML VIAL IV PRN (14:15)
[2017-05-31] MEDS ORDERED: BACITRACIN OINT 0.9 GM PKT TOP ONE (14:15)
[2017-05-31] MEDS ORDERED: ONDANSETRON HCL 4 MG/2 ML VIAL IV PRN (14:15)
[2017-05-31] MEDS ORDERED: MISC INFORMATION XX ONE (14:15)
[2017-05-31] MEDS ORDERED: LIDOCAINE HCL 1% 50 ML VIAL INFIL PRN (14:15)
[2017-05-31] MEDS ORDERED: SODIUM CHLOR 0.9% 250 ML INJ 250 ML IV PRN (14:15)
[2017-05-31] MEDS ORDERED: MORPHINE SULFATE 4 MG/ML INJ IV PUSH PRN (14:15)
--- NOTE | 2017-05-31 14:38 | MA ---
cc: BEL DORANTES MD DATE: 05/31/2017. PROCEDURES PERFORMED: Left heart catheterization, selective coronary angiography and PTCA of the distal right coronary artery. INDICATIONS FOR THE PROCEDURE: Non-ST elevation myocardial infarction. DESCRIPTION OF THE PROCEDURE IN DETAIL: The patient gave informed consent. He was prepped in the usual sterile fashion. A subcutaneous injection of lidocaine was made in the right inguinal area. Access was achieved into the right femoral artery and a 4-Beninese sheath was inserted. An angled 4-Beninese pigtail catheter was utilized for t he left ventriculogram and hemodynamics. A JL-4 and 3DRC were utilized to engage the left and right coronary arteries. Angiograms were obtained. We proceeded with the intervention below. PTCA OF THE RIGHT CORONARY ARTERY: The sheath was upsized to a 6-Beninese. Angiomax was utilized with therapeutic ACT. 3DRC guide was utilized. A BMW wire would not pass through the tortuous mid vessel. A Choice PT floppy wire through the tortuosity in the lesion in the distal right coronary artery. Pre-dilation was made with a 1.25 mm balloon followed by a 2.0 balloon. I then tried to pass a stent which would not pass through the lesion. The guide and the wire ultimately backed out. I then re-engaged the guide and rewired the lesion. A 3.0 balloon was then utilized for PTCA. Several long inflations were made with excellent angiographic results. There was CLEM III flow, 0% residual and 0 dissection. I again tried to pass the stent however again it would not pass through the tortuosity and the case was subsequently terminated. The patient received Brilinta. FINDINGS: Left main: This is angiographically normal and gives rise to an left anterior descending and circumflex. Left anterior descending: This is a moderate caliber vessel that is free of any significant disease. It does just reach the apex. There is a first diagonal that is moderately sized and it also is free of any significant disease. Both vessels are very tortuous. Circumflex: This is a nondominant vessel that is tortuous and free of any significant disease. It has a large OM that is also free of any significant disease. Right coronary artery: This is a large hyper-dominant vessel that is extremely tortuous. There is a distal 99% stenosis. LEFT VENTRICULOGRAM: This shows an ejection fraction of 55%. There does appear to be a fistula out of the perimembranous area that appears to go into the right atrium. CONCLUSIONS: 1. Normal left ventricular function. 2. Severe disease of the distal right coronary artery. 3. Successful PTCA of the right coronary artery. 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 Of note, there does not appear to be much contrast flow into the right atrium; thus it is felt to be likely an incidental finding. Bel Dorantes M.D. MATIAS/IRIS /1:48 PM /2:28 PM
[2017-05-31] MEDS: SODIUM CHLOR 0.9% 1000 ML INJ 1,000 ML IV SCH (17:00)
[2017-05-31] MEDS: LORazepam 2 MG/ML VIAL IV PRN ×2 (19:18→19:50)
[2017-05-31] MEDS ORDERED: guaiFENesin SOLUTION 200 MG/10 ML CUP PO PRN (19:45)
[2017-05-31] MEDS ORDERED: MIDAZOLAM HCL 2 MG/2 ML VIAL IV PUSH ONE (20:00)
[2017-05-31] MEDS: CARVEDILOL 3.125 MG TAB PO SCH (20:51)
[2017-05-31] MEDS: SODIUM CHLORIDE 0.9% FLUSH 10 ML FLUSH IV FLUSH SCH (20:51)
[2017-05-31] MEDS: FAMOTIDINE 20 MG TAB PO SCH (20:51)
[2017-05-31] MEDS ORDERED: ATORVASTATIN 40 MG TAB PO SCH (21:00)
[2017-06-01] VITALS (15 sets, daily range): BP systolic 116–131; BP diastolic 74–90; PULSE 62–88; RESP 16–20; TEMP 98.2–98.6; O2SAT 95–97
[2017-06-01] MEDS: SODIUM CHLOR 0.9% 1000 ML INJ 1,000 ML IV SCH (00:06)
[2017-06-01] MEDS: NITROGLYCERIN 2% OINT 1 GM PACKET TOPICAL SCH ×3 (05:41→12:00)
[2017-06-01] MEDS: INSULIN ASPART SUPPLEMENTAL SCALE SQ SCH ×2 (06:02→12:36)
[2017-06-01] MEDS ORDERED: ASPIRIN 81 MG CHEW TAB PO SCH (09:00)
[2017-06-01] MEDS ORDERED: CLOPIDOGREL 75 MG TAB PO SCH (09:00)
[2017-06-01 09:11] LABS: AUTOMATED NEUTROPHIL # 6.9 TH/MM3 (1.8-7.7); BASOPHIL # 0.1 TH/MM3 (0-0.2); EOSINOPHIL # 0.3 TH/MM3 (0-0.4); HEMATOCRIT 43.1 % (39.0-51.0); HEMO FLAGS DIFF FINAL; LYMPH % 18.8 % (9.0-44.0); LYMPHOCYTE # 1.8 TH/MM3 (1.0-4.8); MEAN CELL VOLUME 84.1 FL (80.0-100.0); MEAN CORPUSCULAR HEMOGLOBIN 28.3 PG (27.0-34.0); MEAN CORPUSCULAR HGB CONC 33.6 % (32.0-36.0); MONO % 4.7 % (0.0-8.0); NEUT % 72.5 % (16.0-70.0); PLATELET COUNT 212 TH/MM3 (150-450); RED BLOOD COUNT 5.12 MIL/MM3 (4.50-5.90); WHITE BLOOD COUNT 9.5 TH/MM3 (4.0-11.0)
--- NOTE | 2017-06-01 09:13 | HHI.PR ---
Subjective Remarks no cp/sob Objective Vitals heart reg lung cta abd s/nt ext no edema Vital Signs Date Time Temp Pulse Resp B/P (MAP) Pulse Ox O2 Delivery O2 Flow Rate FiO2 06/01/17 07:55 98.2 70 20 131/90 (104) 95 06/01/17 06:13 67 06/01/17 05:04 67 06/01/17 04:20 68 06/01/17 03:58 65 06/01/17 03:27 98.6 62 117/79 (92) 97 06/01/17 02:00 62 06/01/17 01:00 62 06/01/17 00:00 66 05/31/17 23:51 98.6 71 114/72 (86) 97 05/31/17 23:00 64 05/31/17 22:00 68 05/31/17 21:00 84 05/31/17 20:00 74 05/31/17 20:00 73 147/91 (109) 96 05/31/17 19:00 70 05/31/17 18:00 72 05/31/17 17:00 66 05/31/17 16:00 66 05/31/17 15:03 62 05/31/17 15:00 98.6 62 16 116/78 (91) 96 05/31/17 10:18 69 18 137/76 (96) 97 Room Air Result Diagram: 06/01/17 0714 05/31/17 0730 Imaging Last Impressions Chest X-Ray 05/31/17 0719 Signed Impressions: Service Date/Time: Wednesday, May 31, 2017 09:13 - CONCLUSION: Normal examination. Alberto Solano MD A/P Problem List: (1) Non-STEMI (non-ST elevated myocardial infarction) ICD Codes: I21.4 - Non-ST elevation (NSTEMI) myocardial infarction Status: Acute Plan: nstemi s/p ptca rca 05/31 bb/statin/asa/plavix d/c today with cardiology f/u f/u pcp for monitoring of dm control. (2) Diabetes mellitus ICD Codes: E11.9 - Type 2 diabetes mellitus without complications Plan: f/u pcp. (3) GERD (gastroesophageal reflux disease) ICD Codes: K21.9 - Gastro-esophageal reflux disease without esophagitis Plan: Continue home medication (4) HTN (hypertension) ICD Codes: I10 - Essential (primary) hypertension Plan: cont Dawson Pruett MD Jun 01, 2017 09:13
[2017-06-01] MEDS ORDERED: ASPI325T PO (09:16)
[2017-06-01] MEDS ORDERED: PLAV75TA29 PO (09:16)
[2017-06-01] MEDS ORDERED: CARV3.125 PO (09:16)
[2017-06-01] MEDS ORDERED: ATOR40TA16 PO (09:17)
--- NOTE | 2017-06-01 09:17 | HHI.DCPOC ---
Discharge Care Plan Diagnosis: (1) Non-STEMI (non-ST elevated myocardial infarction) (2) Diabetes mellitus (3) GERD (gastroesophageal reflux disease) (4) HTN (hypertension) Goals to Promote Your Health * To prevent worsening of your condition and complications * To maintain your health at the optimal level Directions to Meet Your Goals Take your medications as prescribed Follow your dietary instruction Follow activity as directed Keep your appointments as scheduled Take your immunizations and boosters as scheduled If your symptoms worsen call your PCP, if no PCP go to Urgent Care Center or Emergency Room Smoking is Dangerous to Your Health. Avoid second hand smoke Call the 24-hour hour crisis hotline for domestic abuse at Dawson Oviedo MD Jun 01, 2017 09:17
[2017-06-01] MEDS ORDERED: METF500T PO (09:21)
[2017-06-01 09:34] LABS: ANION GAP 8 MEQ/L (5-15); BICARBONATE 26.6 MEQ/L (21.0-32.0); BLOOD UREA NITROGEN 9 MG/DL (7-18); CHLORIDE 105 MEQ/L (98-107); GLOMERULAR FILTRATION RATE 83 ML/MIN (>89); POTASSIUM 3.3 MEQ/L (3.5-5.1); SODIUM (NA) 140 MEQ/L (136-145)
[2017-06-01] MEDS: FAMOTIDINE 20 MG TAB PO SCH (09:53)
[2017-06-01] MEDS: CARVEDILOL 3.125 MG TAB PO SCH (09:53)
[2017-06-01] MEDS: SODIUM CHLORIDE 0.9% FLUSH 10 ML FLUSH IV FLUSH SCH (09:55)
[2017-06-01 11:22] LABS: HEMOGLOBIN A1a 1.3 %; HEMOGLOBIN A1b 1.1 %; HEMOGLOBIN Ao 78.8 %; HEMOGLOBIN F 1.8 %; HEMOGLOBIN LA1C 2.6 %; HEMOGLOBIN P3 4.5 %
--- NOTE | 2017-06-01 14:24 | HHI.PR ---
Subjective Remarks No chest pain Objective Vital Signs Date Time Temp Pulse Resp B/P (MAP) Pulse Ox O2 Delivery O2 Flow Rate FiO2 06/01/17 11:00 79 16 116/74 (88) 97 06/01/17 07:55 98.2 70 20 131/90 (104) 95 06/01/17 06:13 67 06/01/17 05:04 67 06/01/17 04:20 68 06/01/17 03:58 65 06/01/17 03:27 98.6 62 117/79 (92) 97 06/01/17 02:00 62 06/01/17 01:00 62 06/01/17 00:00 66 05/31/17 23:51 98.6 71 114/72 (86) 97 05/31/17 23:00 64 05/31/17 22:00 68 05/31/17 21:00 84 05/31/17 20:00 74 05/31/17 20:00 73 147/91 (109) 96 05/31/17 19:00 70 05/31/17 18:00 72 05/31/17 17:00 66 05/31/17 16:00 66 05/31/17 15:03 62 05/31/17 15:00 98.6 62 16 116/78 (91) 96 I/O 05/31/17 05/31/17 05/31/17 06/01/17 06/01/17 06/01/17 06:59 14:59 22:59 06:59 14:59 22:59 Intake Total 780 ml 1480 ml Output Total 275 ml 550 ml Balance 505 ml 930 ml Intake Oral 480 ml 480 ml IV Total 300 ml 1000 ml Output Urine Total 275 ml 550 ml # Bowel Movements 0 Result Diagram: 06/01/1771306/01/17713 Imaging alert, fully oriented Lungs: ventilated Heart: S1, S2 regular, no gallop Abdomen: soft, no mass Ext: no edema Last Impressions Chest X-Ray 05/31/17718 Signed Impressions: Service Date/Time: Wednesday, May 31, 2017 09:13 - CONCLUSION: Normal examination. Alberto Solano MD Current Medications Medications (Trade) Dose Ordered Sig/Ubaldo Route Start Time Stop Time Status Last Admin (NS Flush) 2 ml UNSCH PRN IV FLUSH 05/31/17 09:15 (NS Flush) 2 ml BID IV FLUSH 05/31/17 21:00 06/01/17 09:55 (Tylenol) 650 mg Q4H PRN PO 05/31/17 09:15 (Nitroglycerin 2% Oint) 0.5 inch Q6HR TOPICAL 05/31/17 12:00 05/31/17 17:19 (Aspirin) 325 mg RESIDENTIAL LEASING AGENT PO 05/31/17 09:15 06/04/17 09:14 (fentaNYL INJ) 50 mcg RESIDENTIAL LEASING AGENT IV 05/31/17 09:15 06/04/17 09:14 (Benadryl Inj) 25 mg RESIDENTIAL LEASING AGENT IV 05/31/17 09:15 06/04/17 09:14 (D50w (Vial) Inj) 50 ml UNSCH PRN IV 05/31/17 09:30 (Glucagon Inj) 1 mg UNSCH PRN OTHER 05/31/17 09:30 (NovoLOG SUPPLEMENTAL SCALE) 1 ACHS SLIDING SCALE SQ 05/31/17 11:00 06/01/17 12:36 (Pepcid) 10 mg BID PO 05/31/17 21:00 06/01/17 09:53 (Coreg) 3.125 mg Q12HR PO 05/31/17 21:00 06/01/17 09:53 (Lipitor) 40 mg HS PO 05/31/17 21:00 05/31/17 20:51 (Xylocaine 2% Jelly) 1 applic UNSCH PRN TOP 05/31/17 14:15 (Tylenol) 325 mg Q4H PRN PO 05/31/17 14:15 (Percocet 5-325 Mg) 1 tab Q4H PRN PO 05/31/17 14:15 (Percocet 10-325 Mg) 1 tab Q4H PRN PO 05/31/17 14:15 (Morphine Inj) 2 mg Q30M PRN IV PUSH 05/31/17 14:15 (Aspirin Chew) 162 mg DAILY PO 06/01/17 09:00 06/01/17 09:53 (Plavix) 75 mg DAILY PO 06/01/17 09:00 06/01/17 09:53 (Atropine Inj) 0.5 mg UNSCH PRN IV 05/31/17 14:15 (Reglan Inj) 10 mg Q4H PRN IV 05/31/17 14:15 (Zofran Inj) 4 mg Q4H PRN IV 05/31/17 14:15 (Robitussin Liq) 200 mg Q6H PRN PO 05/31/17 19:45 05/31/17 19:50 Assessment and Plan Problem List: (1) Non-STEMI (non-ST elevated myocardial infarction) ICD Codes: I21.4 - Non-ST elevation (NSTEMI) myocardial infarction Status: Acute Plan: SP PTCA to RCA No chest pain. Doing better Can be DH Follow up Dr Joshua. (2) HTN (hypertension) ICD Codes: I10 - Essential (primary) hypertension Plan: SBP 116 Dimitri Dewitt MD Jun 01, 2017 14:24
--- NOTE | 2017-06-01 20:01 | EKG ---
Date Performed: 06/01/2017 Time Performed: 06:06:58 PTAGE: 62 years EKG: Sinus rhythm Left anterior fascicular block Possible inferior infarct - age undetermined Lateral T wave changes m ay be due to myocardial ischemia Low QRS voltages in precordial leads Abnormal ECG PREVIOUS TRACING : 05/31/2017 14.39 DOCTOR: Dimitri Dewitt Interpretating Date/Time 06/01/2017 19:58:23
--- NOTE | 2017-06-01 20:17 | EKG ---
Date Performed: 05/31/2017 Time Performed: 14:39:52 PTAGE: 62 years EKG: Sinus rhythm Left anterior fascicular block Inferior/lateral ST-T changes may be due to myocardial ischemia Abnor mal ECG PREVIOUS TRACING : 05/31/2017 07.09 DOCTOR: Dimitri Dewitt Interpretating Date/Time 06/01/2017 20:13:25
== END 2017-06-01 15:11 | disposition home or self-care (01) | DRG 247 ==
LOC: NEPE 06:54 → NEDA 09:04 → HCIN 14:00
PROVIDERS: ADMIT Hospitalist; ATTEND Hospitalist
PROC: 4A023N7 Measurement of Cardiac Sampling and Pressure, Left Heart, Percutaneous Approach (ICD-10-PCS; principal; 2017-05-31)
PROC: 027034Z Dilation of Coronary Artery, One Artery with Drug-eluting Intraluminal Device, Percutaneous Approach (ICD-10-PCS; 2017-05-31)
PROC: B2111ZZ Fluoroscopy of Multiple Coronary Arteries using Low Osmolar Contrast (ICD-10-PCS; 2017-05-31)
PROC: B2151ZZ Fluoroscopy of Left Heart using Low Osmolar Contrast (ICD-10-PCS; 2017-05-31)
DX: I21.4 Non-ST elevation (NSTEMI) myocardial infarction (principal); I10 Essential (primary) hypertension; E11.9 Type 2 diabetes mellitus without complications; I25.10 Atherosclerotic heart disease of native coronary artery without angina pectoris; K21.9 Gastro-esophageal reflux disease without esophagitis; Z79.82 Long term (current) use of aspirin; Z87.891 Personal history of nicotine dependence; K44.9 Diaphragmatic hernia without obstruction or gangrene
CPT/HCPCS: 71010; 80048; 80053; 80061; 82550; 82552; 82948; 83036; 84484; 85002; 85025; 85347; 85610; 85730; 92928; 93005; 93458; 96372; 96374; C1725; C1769; C1874; C1887; C1893; J0583; J1650; J1815; J2060; J2250; J2270; J7030; Q9967